=== PATIENT | female | born 1965 ===

== ENCOUNTER 2022-12-15 08:30 | Emergency (ER) | payer OTHER ==
[~2022-12-15] VITALS: Ht 154.9 cm; Wt 72.6 kg
== END 2022-12-15 18:41 | disposition home or self-care (01) ==
LOC: ER 08:30
DX: K57.92 Diverticulitis of intestine, part unspecified, without perforation or abscess without bleeding (principal); Z85.030 Personal history of malignant carcinoid tumor of large intestine; Z20.822 Contact with and (suspected) exposure to COVID-19